=== PATIENT | female | born 1955 | race Two or more races ===

== ENCOUNTER 2020-10-27 14:54 | Outpatient (CLI) | payer OTHER | END 2020-10-27 14:57 | disposition home or self-care (01) | LOC: PPH VACUNA 14:54 | PROVIDERS: ATTEND Emergency Medicine Pediatric Emergency Medicine | DX: Z23 Encounter for immunization (principal) ==

== ENCOUNTER 2020-11-17 14:44 | Outpatient (CLI) | payer OTHER | END 2020-11-17 15:00 | disposition home or self-care (01) | LOC: PPH VACUNA 14:44 | PROVIDERS: ATTEND Emergency Medicine Pediatric Emergency Medicine | DX: Z23 Encounter for immunization (principal) ==

== ENCOUNTER → 2021-08-02 | Outpatient (CLI) | payer OTHER | END | disposition home or self-care (01) | LOC: PPH VACUNA 08:00 | PROVIDERS: ATTEND Emergency Medicine Pediatric Emergency Medicine | DX: Z23 Encounter for immunization (principal) ==

== ENCOUNTER 2022-08-02 12:15 | Outpatient (CLI) | payer OTHER | END 2022-08-02 12:25 | disposition home or self-care (01) | LOC: PPH VACUNA 12:15 | PROVIDERS: ATTEND Emergency Medicine Pediatric Emergency Medicine | DX: Z23 Encounter for immunization (principal) ==